=== PATIENT | male | born 1985 | race Caucasian/White ===

== ENCOUNTER 2022-02-17 02:28 | Emergency (ER) | payer OTHER ==
[~2022-02-17] VITALS: Ht 175.3 cm; Wt 81.7 kg
[2022-02-17] MEDS ORDERED: CEPH500 PO (05:45)
[2022-02-17] MEDS ORDERED: Bactrim Ds Tab1 EACH PO (05:45)
[2022-02-17] MEDS ORDERED: Mupirocin22 GM TOP (05:45)
== END 2022-02-17 06:07 | disposition home or self-care (01) ==
LOC: ER 02:28
DX: L03.116 Cellulitis of left lower limb (principal)
CPT/HCPCS: A9270